=== PATIENT | male | born 1965 | race Caucasian/White ===

== ENCOUNTER 2019-08-05 11:30 | Outpatient (CLI) | payer OTHER, SELFPAY ==
[2019-08-12 15:48] LABS: Reference Lab Test Result Negative
== END 2019-08-05 11:31 | disposition home or self-care (01) ==
PROVIDERS: PCP Internal Medicine; Visit Provider Internal Medicine
DX: Z01.818 Encounter for other preprocedural examination (principal); Z11.59 Encounter for screening for other viral diseases
CPT/HCPCS: 36415; 86769

== ENCOUNTER 2019-08-06 00:28 | Outpatient (CLI) | payer OTHER, SELFPAY ==
[2019-08-06 19:45] LABS: SARS-CoV-2 RNA PCR Negative
== END 2019-08-06 00:29 | disposition home or self-care (01) ==
LOC: ANHCOVIDDT 00:28
PROVIDERS: PCP Internal Medicine; Visit Provider Internal Medicine Cardiovascular Disease
DX: Z01.818 Encounter for other preprocedural examination (principal); Z11.59 Encounter for screening for other viral diseases
CPT/HCPCS: 87635; C9803; U0003

== ENCOUNTER 2019-08-08 05:33 | Day surgery (SDC) | payer OTHER, SELFPAY ==
[2019-08-07 12:28] VITALS: BMI 42.4
[2019-08-08] VITALS (14 sets, daily range): BP systolic 131–182; BP diastolic 50–98; PULSE 56–73; RESP 14–23; TEMP 36.4–36.7; O2SAT 94–100
--- NOTE | 2019-08-08 08:57 | PM.IMHP ---
H&P: HPI History of Present Illness Chief complaint: Aortic Regurgitation Narrative: Sp Tapia is a 54 year old male with past history of hypertension and morbid obesity as well as untreated sleep apnea due to intolerance of CPAP mask. He was seen in the office for severe aortic regurgitation and he is here for transesophageal echocardiogram. Reports lately worsening shortness of breath on exertion but denies chest pain, lower limb edema, dizziness, syncope. Review of Systems Review of Systems: All systems reviewed & are unremarkable except as noted in HPI and below Constitutional: Constitutional: Denies chills, Denies fatigue, Denies fever(s), Denies headache(s) and Denies snoring Eyes: Eyes: Denies eye discharge and Denies loss of vision ENT: Denies dizziness, Denies headache(s), Denies nasal discharge and Denies sore throat Cardiovascular: Cardiovascular: Reports as per HPI, Denies chest pain, Denies syncope, Denies rapid heart rate, Denies leg edema, Reports dyspnea, Reports dyspnea on exertion, Denies orthopnea and Denies paroxysmal nocturnal dyspnea Respiratory: Respiratory: Denies chest congestion, Denies cough, Reports dyspnea, Reports dyspnea on exertion, Denies snoring and Denies wheezing Gastrointestinal: Gastrointestinal: Denies abdominal pain, Denies diarrhea, Denies nausea and Denies vomiting Genitourinary: Genitourinary: Denies hematuria, Denies dysuria, Denies flank pain and Denies urinary frequency Musculoskeletal: Musculoskeletal: Denies myalgias, Denies arthralgias and Denies joint swelling Neurologic: Denies Abnormal speech present, Denies dizziness, Denies syncope, Denies headache(s), Denies focal weakness and Denies loss of vision Psychiatric: Psychiatric: Denies anxiety and Denies depression Endocrine: Endocrine: Denies cold intolerance, Denies fatigue and Denies heat intolerance Hematologic/Lymphatic: Hematologic/Lymphatic: Denies easy bleeding and Denies easy bruising Allergic/Immunologic: Allergic/Immunologic: Denies urticaria and Denies wheezing PMFSH Past Medical History Medical History (Updated 08/08/19 @ 08:59 by Carlita Hollis MD) Hypertension Severe aortic regurgitation Severe aortic regurgitation Family History Family History Sibling Family history of malignant neoplasm of breast in first degree relative Father Hypertension Mother Hypertension Social History Social History Smoking status: Never smoker Tobacco type: e-cigarettes/vaping Second hand tobacco smoke exposure: No Alcohol intake: current Substance use type: does not use Living arrangements: alone Meds Home Medications and Allergies Home Medications Medication Instructions Recorded Confirmed Type apremilast 30 mg tablet 30 mg PO DAILY 02/21/19 08/07/19 History aspirin 81 mg tablet,delayed 81 mg PO DAILY 02/21/19 08/07/19 History release omeprazole magnesium 20 mg 20 mg PO DAILY 02/21/19 08/07/19 History tablet,delayed release valsartan 80 1 tablet PO DAILY #90 tablet 06/03/19 08/07/19 Rx mg-hydrochlorothiazide 12.5 mg tablet Allergies Allergy/AdvReac Type Severity Reaction Status Date / Time No Known Allergies Allergy Unknown Verified 08/07/19 12:27 Vital Signs Vital Signs - 24 hr 08/08/19 08:21 Temperature 36.7 C Pulse Rate 72 Respiratory Rate 23 H Blood Pressure 160/72 H Pulse Oximetry 100 Exam Const: General: cooperative, healthy appearing, comfortable, no acute distress and well developed Nutritional Appearance: well nourished Orientation/consciousness: patient oriented x3 HENMT: Head: normal to inspection, normocephalic and atraumatic Ears: hearing grossly normal bilaterally and external ears normal General nose exam: Normal external nose present and Normal nares present Face and sinus: normal facial exam and no erythema Mouth: Yes moist
--- NOTE | 2019-08-08 09:00 | WPDMODSED ---
Moderate Sedation Note-Pt Data Patient Data Allergies Allergy/AdvReac Type Severity Reaction Status Date / Time No Known Allergies Allergy Unknown Verified 08/07/19 12:27 Home Medications Medication Instructions Recorded Confirmed Type apremilast 30 mg tablet 30 mg PO DAILY 02/21/19 08/07/19 History aspirin 81 mg tablet,delayed 81 mg PO DAILY 02/21/19 08/07/19 History release omeprazole magnesium 20 mg 20 mg PO DAILY 02/21/19 08/07/19 History tablet,delayed release valsartan 80 1 tablet PO DAILY #90 tablet 06/03/19 08/07/19 Rx mg-hydrochlorothiazide 12.5 mg tablet Sedation/Anesthesia: No previous sedation/anesthesia problems (including family history). [facility] [place] Past Medical History Medical History (Updated 08/08/19 @ 08:59 by Carlita Hollis MD) Hypertension Severe aortic regurgitation Severe aortic regurgitation Family History Family History Sibling Family history of malignant neoplasm of breast in first degree relative Father Hypertension Mother Hypertension Social History Social History Smoking status: Never smoker Tobacco type: e-cigarettes/vaping Second hand tobacco smoke exposure: No Alcohol intake: current Substance use type: does not use Living arrangements: alone Mod Sed Physical Exam Physical Exam Pre Procedural Exam: Normal: Appearance, Eyes, Ears, Nose, Neck, Throat, Airway, Lungs, Heart Size, Heart Rate, Heart Rhythm, Neuro Exam, Abdomen, Liver, Kidneys, Spleen, Breasts, Genitalia, Extremities and Skin Hours since solid foods: 8 Hours since liquid intake: 8 Internal Medicine - PN: Obj Da Vital Signs Vital Signs: Vital Signs - 24 hr 08/08/19 08:21 Temperature 36.7 C Pulse Rate 72 Respiratory Rate 23 H Blood Pressure 160/72 H Pulse Oximetry 100 ASA Classification/Sedation ASA Classification/Sedation ASA Class: I Emergent: No Risks: Risks, benefits and alternatives explained and patient/family accepted plan for sedation. Patient re-evaluated immediately prior to sedation.
--- NOTE | 2019-08-08 09:36 | P.PCNTEE_ITS ---
ADE TransEsophageal Echocardiogram Date of procedure: 08/08/19 Procedure Type: Date of service: 08/08/2019 Procedures done: 1-transesophageal echocardiogram using 2D imaging, color Doppler, pulse wave Doppler. 2-moderate sedation that started at 9:07 a.m. and ended at 9:33 a.m. with a tota l duration 26 minutes using 6 mg of Versed and 150 mcg of fentanyl. The registered nurse was Maricruz Medrano. Diagnosis: Severe aortic regurgitation Indications: Severe aortic regurgitation Image Quality: Excellent Findings: Left ventricular: Normal size and systolic function with estimated ejection fraction 55%. Right ventricle: Normal size and systolic function. Left atrium: Normal size. Right atrium: Normal size. Interatrial septum: No evidence for shunt by bubble study and by color Doppler. Left atrial appendage: No evidence for clots. Mitral valve: Normal structure and function. Mild mitral regurgitation. No evidence for stenosis. Aortic valve: Trileaflet aortic valve. Moderately sclerotic. Severe aortic valve regurgitation. No stenosis. -tricuspid valve: Normal structure and function without stenosis or regurgitation. -pulmonic valve: Normal structure and function without stenosis or regurgitation. -pericardium: No pericardial effusion. -ascending aorta: Seems to be generous measures about 3.9 cm. -descending aorta. Normal caliber. Mild atheroma. -pleural: No evidence for pleural effusion. Conclusions: Severe aortic valve regurgitation. Mild mitral valve regurgitation. Ascending aorta mildly dilated.
--- NOTE | 2019-08-08 11:57 | SUR.PHASEII ---
1145 Pt d/c instructions reviewed with patient, questions answered. Copy of ADE CD made and given to Maria A MONTEMAYOR. IV d/c'd, cath intact, pressure applied. Pt transported via WC to main entrance where his father drove him home in private vehicle.
== END 2019-08-08 11:50 | disposition home or self-care (01) ==
PROVIDERS: PCP Internal Medicine; Visit Provider Internal Medicine Cardiovascular Disease
PROC: (CPT 93312; principal; 2019-08-08 08:30)
DX: I35.1 Nonrheumatic aortic (valve) insufficiency (principal); I10 Essential (primary) hypertension; G47.33 Obstructive sleep apnea (adult) (pediatric); E78.49 Other hyperlipidemia; E66.01 Morbid (severe) obesity due to excess calories; Z68.41 Body mass index [BMI] 40.0-44.9, adult; F17.290 Nicotine dependence, other tobacco product, uncomplicated; Z79.82 Long term (current) use of aspirin
CPT/HCPCS: 93312; 93320; 93325; J2250; J3010; J7040

== ENCOUNTER 2019-09-03 00:28 | Outpatient (CLI) | payer OTHER, SELFPAY ==
[2019-09-03 17:56] LABS: SARS-CoV-2 RNA PCR Negative
== END 2019-09-03 00:29 | disposition home or self-care (01) ==
LOC: ANHCOVIDDT 00:29
PROVIDERS: PCP Internal Medicine; Visit Provider Internal Medicine Cardiovascular Disease
DX: Z01.818 Encounter for other preprocedural examination (principal); Z11.59 Encounter for screening for other viral diseases
CPT/HCPCS: 87635; C9803; U0003

== ENCOUNTER 2019-09-05 05:37 | Day surgery (SDC) | payer OTHER, SELFPAY ==
[2019-09-04 16:05] VITALS: BMI 43.4
[2019-09-05] VITALS (8 sets, daily range): BP systolic 133–159; BP diastolic 61–75; PULSE 48–68; RESP 10–20; TEMP 36.3; O2SAT 94–99
[2019-09-05 07:53] LABS: Basophils Absolute Auto 0.1 K/mm3 (0.0-0.1); Basophils Percent Auto 0.8 % (0.2-1.2); Eosinophils Absolute Auto 0.4 K/mm3 (0-0.3); Eosinophils Percent Auto 5.8 % (0-4.4); Hematocrit 33.7 % (42.0-52.0); Hemoglobin 10.9 g/dL (14.0-18.0); Immature Granulocyte Absolute 0.02 K/mm3 (0.00-0.031); Immature Granulocyte Percent A 0.3 % (0-0.5); Lymphocytes Absolute Auto 2.17 K/mm3 (0.9-3.2); Lymphocytes Percent Auto 34.7 % (18.3-44.2); Mean Corpuscular HGB Conc 32.3 g/dl (32-36); Mean Corpuscular Hemoglobin 27.1 pg (26-34); Mean Corpuscular Volume 83.8 fl (80-100); Mean Platelet Volume 10.8 fl (7.4-10.4); Monocytes Absolute Auto 0.7 K/mm3 (0.1-0.6); Monocytes Percent Auto 11.4 % (2.6-8.5); Neutrophils Absolute Auto 2.9 K/mm3 (1.3-6.7); Platelet Count Result 218 k/mm3 (150-375); Red Blood Count 4.02 M/mm3 (4.6-6.20); Red Cell Distribution Width 14.5 % (11.5-14.5); White Blood Count 6.3 K/mm3 (4.5-10.0)
[2019-09-05 08:02] LABS: Prothrombin Time 12.8 Seconds (11.1-14.7)
[2019-09-05 08:05] LABS: Anion Gap 10.9 mmol/L (7-16); Blood Urea Nitrogen 13 mg/dL (9-20); Calcium 8.5 mg/dL (8.4-10.2); Carbon Dioxide 23 mmol/L (22-30); Chloride 108 mmol/L (98-107); Estimated CRCL calculation 136 ml/min; Estimated Glomerular Filt Rate > 60; Glucose 108 mg/dL (75-110); Potassium 3.9 mmol/L (3.4-5.0); Sodium 138 mmol/L (137-145)
--- NOTE | 2019-09-05 08:39 | WPDMODSED ---
Moderate Sedation Note-Pt Data Patient Data Allergies Allergy/AdvReac Type Severity Reaction Status Date / Time No Known Allergies Allergy Unknown Verified 08/07/19 12:27 Home Medications Medication Instructions Recorded Confirmed Type apremilast 30 mg tablet 30 mg PO DAILY 02/21/19 09/05/19 History aspirin 81 mg tablet,delayed 81 mg PO DAILY 02/21/19 09/05/19 History release omeprazole magnesium 20 mg 20 mg PO DAILY 02/21/19 09/05/19 History tablet,delayed release valsartan 80 1 tablet PO DAILY #90 tablet 06/03/19 09/05/19 Rx mg-hydrochlorothiazide 12.5 mg tablet Current Medications: Active Medications Sodium Chloride (Normal Saline Iv) 500 mls @ 100 mls/hr IV CONT .Q5H [facility] Sedation/Anesthesia: No previous sedation/anesthesia problems (including family history). [facility] Past Medical History Medical History Hypertension Severe aortic regurgitation Severe aortic regurgitation Social History Social History Smoking status: Never smoker Tobacco type: e-cigarettes/vaping Second hand tobacco smoke exposure: No Alcohol intake: current Alcohol use details: social drinking Substance use type: does not use Gender identity (if verbalized by the patient): Male Sexual Orientation (if Verbalized by the Patient): Straight or Heterosexual Mod Sed Physical Exam Physical Exam Pre Procedural Exam: Normal: Appearance, Eyes, Ears, Nose, Neck, Throat, Airway, Lungs, Heart Size, Heart Rate, Heart Rhythm, Neuro Exam, Abdomen, Liver, Kidneys, Spleen, Breasts, Genitalia, Extremities and Skin Hours since solid foods: 8 Hours since liquid intake: 8 Internal Medicine - PN: Obj Da Vital Signs Vital Signs: Vital Signs - 24 hr 09/05/19 07:52 Temperature 36.3 C L Pulse Rate 68 Respiratory Rate 18 Blood Pressure 155/75 H Pulse Oximetry 98 Meds/Results Medications: Active Medications Generic Name Dose Route Start Last Admin Trade Name Freq PRN Reason Stop Dose Admin Sodium Chloride 500 mls @ 100 mls/hr 09/05/19 06:15 Normal Saline Iv IV CONT .Q5H [facility] Labs CBC & Chem 7: 09/05/19 07:45 09/05/19 07:45 Labs: Laboratory Results - last 24 hr 09/05/19 09/05/19 09/05/19 07:45 07:45 07:45 WBC 6.3 RBC 4.02 L Hgb 10.9 L Hct 33.7 L MCV 83.8 MCH 27.1 MCHC 32.3 RDW 14.5 Plt Count 218 MPV 10.8 H Immature Gran % (Auto) 0.3 Neut % (Auto) 47.0 Lymph % (Auto) 34.7 [place] % (Auto) 11.4 H Eos % (Auto) 5.8 H Baso % (Auto) 0.8 Lymph # (Auto) 2.17 [place] # (Auto) 0.7 H Eos # (Auto) 0.4 H Baso # (Auto) 0.1 Abs Immat Gran (auto) 0.02 Absolute Neuts (auto) 2.9 Absolute Nucleated RBC 0.0 Nucleated RBC % 0.0 PT 12.8 INR 1.0 Sodium 138 Potassium 3.9 Chloride 108 H Carbon Dioxide 23 Anion Gap 10.9 BUN 13 Creatinine 0.80 Estim Creat Clear Calc 136 Estimated GFR > 60 Glucose 108 Calcium 8.5 ASA Classification/Sedation ASA Classification/Sedation ASA Class: I Emergent: No Risks: Risks, benefits and alternatives explained and patient/family accepted plan for sedation. Patient re-evaluated immediately prior to sedation.
--- NOTE | 2019-09-05 08:39 | PM.IMHP ---
H&P: HPI History of Present Illness Chief complaint: AI Narrative: Sp Tapia is a 54 year old male Past medical history severe regurgitation, morbid obesity comes here for cardiac catheterization prior to anticipated aortic valve replacement. Complains of generalized fatigability, some dyspnea on exertion but denies chest pain, lower limb edema, dizziness, syncope. Review of Systems Review of Systems: All systems reviewed & are unremarkable except as noted in HPI and below Constitutional: Constitutional: Denies chills, Reports fatigue, Denies fever(s), Denies headache(s) and Denies snoring Eyes: Eyes: Denies eye discharge and Denies loss of vision ENT: Denies dizziness, Denies headache(s), Denies nasal discharge and Denies sore throat Cardiovascular: Cardiovascular: Reports as per HPI, Denies chest pain, Denies syncope, Denies rapid heart rate, Denies leg edema, Denies dyspnea, Denies dyspnea on exertion, Denies orthopnea and Denies paroxysmal nocturnal dyspnea Respiratory: Respiratory: Denies chest congestion, Denies cough, Denies dyspnea, Denies dyspnea on exertion, Denies snoring and Denies wheezing Gastrointestinal: Gastrointestinal: Denies abdominal pain, Denies diarrhea, Denies nausea and Denies vomiting Genitourinary: Genitourinary: Denies hematuria, Denies dysuria, Denies flank pain and Denies urinary frequency Musculoskeletal: Musculoskeletal: Denies myalgias, Denies arthralgias and Denies joint swelling Neurologic: Denies Abnormal speech present, Denies dizziness, Denies syncope, Denies headache(s), Denies focal weakness and Denies loss of vision Psychiatric: Psychiatric: Denies anxiety and Denies depression Endocrine: Endocrine: Denies cold intolerance, Denies fatigue and Denies heat intolerance Hematologic/Lymphatic: Hematologic/Lymphatic: Denies easy bleeding and Denies easy bruising Allergic/Immunologic: Allergic/Immunologic: Denies urticaria and Denies wheezing PMFSH Past Medical History Medical History Hypertension Severe aortic regurgitation Severe aortic regurgitation Social History Social History Smoking status: Never smoker Tobacco type: e-cigarettes/vaping Second hand tobacco smoke exposure: No Alcohol intake: current Alcohol use details: social drinking Substance use type: does not use Gender identity (if verbalized by the patient): Male Sexual Orientation (if Verbalized by the Patient): Straight or Heterosexual Meds Home Medications and Allergies Home Medications Medication Instructions Recorded Confirmed Type apremilast 30 mg tablet 30 mg PO DAILY 02/21/19 09/05/19 History aspirin 81 mg tablet,delayed 81 mg PO DAILY 02/21/19 09/05/19 History release omeprazole magnesium 20 mg 20 mg PO DAILY 02/21/19 09/05/19 History tablet,delayed release valsartan 80 1 tablet PO DAILY #90 tablet 06/03/19 09/05/19 Rx mg-hydrochlorothiazide 12.5 mg tablet Allergies Allergy/AdvReac Type Severity Reaction Status Date / Time No Known Allergies Allergy Unknown Verified 08/07/19 12:27 Vital Signs Vital Signs - 24 hr 09/05/19 07:52 Temperature 36.3 C L Pulse Rate 68 Respiratory Rate 18 Blood Pressure 155/75 H Pulse Oximetry 98 Exam Const: General: cooperative, healthy appearing, comfortable, no acute distress and well developed Nutritional Appearance: well nourished Orientation/consciousness: patient oriented x3 HENMT: Head: normal to inspection, normocephalic and atraumatic Ears: hearing grossly normal bilaterally and external ears normal General nose exam: Normal external nose present and Normal nares present Face and sinus: normal facial exam and no erythema Mouth: Yes moist mucous membranes and No lip abnormal Throat: uvula midline Eyes: General: appearance normal, both eyes and all related structures Eyelids: eyelids normal Scler
--- NOTE | 2019-09-05 08:42 | P.PCNCC_ITS ---
Cardiac Cath Procedure Note Date of procedure:: 09/05/19 Performing physician:: Carlita Hollis MD date of service September 05, 2019 Procedure Procedure performed:: 1-Moderate sedation that started at 8:52 a.m.and ended at 9:27 a.m. with total duration 34 minutesusing mg of Versed and mg fentanyl. The registered nurse was damaso calabrese 2-Selective left and right coronary angiogram. 3-Left heart catheterization with measurement of LVEDP and measurement of gradient across aortic valve. 3- LV angiogram. 4-Right common femoral arterial angiogram. 5-Deployment of 6 [place] Angio-Seal. Sedation/Medication given:: Moderate sedation. Access site:: Right common femoral artery. Estimated blood loss:: 10cc Procedure note:: After informed consent patient was brought in to mini lab operator with the was draped and prepped in usual manner. Moderate sedation was given and the right groin was infiltrated using 1% lidocaine. Five [place] sheath was obtained using micropuncture needle and the modified Seldinger technique. Selective left coronary angiogram was done using JL5 catheter with the tip of the catheter placed in the left main coronary artery. Selective right coronary angiogram was done using JR4 catheter with the tip of the catheter placed to the right coronary artery. After that 5 [place] pigtail catheter was advanced across the aortic valve into the left ventricle with measurement of LVEDP and measurement of gradient across aortic valve. LV angiogram was done.Right common femoral arterial angiogram was done. Findings:: 1- left coronary artery is a large artery that divides into large LAD , large circumflex artery. Left main is short and without significant disease. 2- left anterior descending artery is a large artery that runs and wraps around the apex. has minimal irregularities 3- leftcircumflex artery is a large artery and codominant with minimal irregularities. Large OM1 branch with minimal irregularities and medium size the PDA. 4- right coronary artery is Large artery, tortuous with minimal irregularities. 5- LVEDP was 15 and no gradient across aortic valve. 6- opening arterial pressure was 180/90and closing pressure was 170/90 6- LV angiogram shows normal LV systolic function. Both the ascending and the descending aorta seems to be generous and dilated. 7- right femoral artery angiogram shows no significant disease in the right common femoral artery. Conclusion:: 1- Minimal coronary irregularities. 2- Cannot rule out aortic aneurysm both in the ascending and the descending. Assessment and Plan Additional Plan 1- Patient will need CTA of thoracic aorta. 2- refer to surgery for consideration for aortic valve replacement.
--- NOTE | 2019-09-05 12:57 | SUR.PHASEII ---
Pt. given discharge education on follow-up care, site care, and reportable signs/symptoms. Pt. verbalizes understanding.
== END 2019-09-05 13:12 | disposition home or self-care (01) ==
LOC: ANHCATHLAB 05:37 → ANHCARD 09:31 → ANHCATHLAB 09-25 12:23
PROVIDERS: PCP Internal Medicine; Visit Provider Internal Medicine Cardiovascular Disease
PROC: 4A023N7 Measurement of Cardiac Sampling and Pressure, Left Heart, Percutaneous Approach (ICD-10-PCS; CPT 93452; principal; 2019-09-05 08:30)
DX: Z01.810 Encounter for preprocedural cardiovascular examination (principal); I35.1 Nonrheumatic aortic (valve) insufficiency; R06.09 Other forms of dyspnea; R93.1 Abnormal findings on diagnostic imaging of heart and coronary circulation; I10 Essential (primary) hypertension; Z79.82 Long term (current) use of aspirin; F17.290 Nicotine dependence, other tobacco product, uncomplicated; G47.33 Obstructive sleep apnea (adult) (pediatric); E66.01 Morbid (severe) obesity due to excess calories; Z68.41 Body mass index [BMI] 40.0-44.9, adult
CPT/HCPCS: 36415; 80048; 85025; 85610; 87635; 93458; C1760; C1887; C1894; G0269; J1644; J2250; J3010; J7030; U0003

== ENCOUNTER → 2019-09-19 10:18 | Outpatient (CLI) | payer OTHER, SELFPAY ==
--- NOTE | ~2019-09-19 | CT_ITS ---
EXAMINATION: CTA chest DATE: 09/19/2019 11:01 INDICATION: Thoracic aortic aneurysm TECHNIQUE: Computed tomographic angiography (CTA) of the chest was performed without and with 100 mL Omnipaque-350 intravenous contrast. Volume-rendered 3D-reconstructions of the aorta and large arterie s were constructed by the technologist on a separate workstation. The dose-length product was 1858 mG y-cm. COMPARISON: None. FINDINGS: Lungs are clear with no pneumonia, pulmonary edema or pleural effusion. 4 mm right middle lobe nodule . Cardiomegaly. No pericardial effusion. Fusiform ascending thoracic aorta which measures up to 4.8 c m in maximal diameter tapering to 3.9 cm at the level of the takeoff of the innominate artery and 3.1 cm at the distal side of the takeoff of the left subclavian artery. Descending thoracic aorta is nor mal in caliber. No dissection. No pathologically enlarged thoracic lymphadenopathy. 11.3 cm and 5.1 c m left renal cyst. 2.2 cm low-attenuation right adrenal adenoma. Liver, gallbladder, spleen, pancreas and left adrenal gland are normal. Small sliding-type hiatal hernia. Mild thoracic kyphosis with mil d anterior wedging of a few mid to lower thoracic vertebral bodies. There are bridging osteophytes at multiple levels in the spine, consistent with diffuse idiopathic skeletal hyperostosis (DISH). IMPRESSION: 1. Fusiform ascending thoracic aortic aneurysm measuring up to 4.8 cm in maximal diameter. 2. Small sliding-type hiatal hernia. Reviewed, dictated and finalized at location A. IMPRESSION: 1. Fusiform ascending thoracic aortic aneurysm measuring up to 4.8 cm in ward l diameter. 2. Small sliding-type hiatal hernia.
[2019-09-19 10:37] LABS: Estimated Glomerular Filt Rate > 60
== END ==
PROVIDERS: Visit Provider Internal Medicine Cardiovascular Disease
DX: I71.2 Thoracic aortic aneurysm, without rupture (principal); K44.9 Diaphragmatic hernia without obstruction or gangrene
CPT/HCPCS: 36415; 71275; Q9967

== ENCOUNTER 2020-08-27 01:52 | Day surgery (SDC) | payer OTHER, SELFPAY ==
[2020-08-27] VITALS (9 sets, daily range): BP systolic 136–164; BP diastolic 57–96; PULSE 66–79; RESP 15–24; TEMP 35.7; O2SAT 92–99; BMI 44.4
--- NOTE | 2020-08-27 10:56 | PM.IMHP ---
H&P: HPI History of Present Illness Date/Time: dos: 08/27/20 10:56 Chief Complaint: I am here for transesophageal echo Narrative: this is 55-year-old patient who history of sleep apnea morbid obesity who had aortic valve repair last year however repeat imaging shows moderate to severe aortic valve regurgitation. He complains of dyspnea on exertion and feeling fatigability. He is here for repeat echo transesophageal echocardiogram to further assess. Denies chest pains, dizziness or syncope. Review of Systems Review of Systems: All systems reviewed & are unremarkable except as noted in HPI and below Constitutional: Constitutional: Denies chills, Reports fatigue, Denies fever(s), Denies headache(s) and Denies snoring Eyes: Eyes: Denies eye discharge and Denies loss of vision ENT: Denies dizziness, Denies headache(s), Denies nasal discharge and Denies sore throat Cardiovascular: Cardiovascular: Reports as per HPI, Denies chest pain, Denies syncope, Denies rapid heart rate, Denies leg edema, Reports dyspnea, Reports dyspnea on exertion, Denies orthopnea and Denies paroxysmal nocturnal dyspnea Respiratory: Respiratory: Denies chest congestion, Denies cough, Reports dyspnea, Reports dyspnea on exertion, Denies snoring and Denies wheezing Gastrointestinal: Gastrointestinal: Denies abdominal pain, Denies diarrhea, Denies nausea and Denies vomiting Genitourinary: Genitourinary: Denies hematuria, Denies dysuria, Denies flank pain and Denies urinary frequency Musculoskeletal: Musculoskeletal: Denies myalgias, Denies arthralgias and Denies joint swelling Neurologic: Denies Abnormal speech present, Denies dizziness, Denies syncope, Denies headache(s), Denies focal weakness and Denies loss of vision Psychiatric: Psychiatric: Denies anxiety and Denies depression Endocrine: Endocrine: Denies cold intolerance, Denies fatigue and Denies heat intolerance Hematologic/Lymphatic: Hematologic/Lymphatic: Denies easy bleeding and Denies easy bruising Allergic/Immunologic: Allergic/Immunologic: Denies urticaria and Denies wheezing PMF Past Medical History Medical History Hypertension Severe aortic regurgitation Severe aortic regurgitation Family History Family History Sibling Family history of malignant neoplasm of breast in first degree relative Father Hypertension Mother Hypertension Social History Social History Smoking status: Never smoker Tobacco type: e-cigarettes/vaping Second hand tobacco smoke exposure: No Alcohol intake: current Alcohol use details: social drinking Substance use type: does not use Gender identity (if verbalized by the patient): Male Meds Home Medications and Allergies Home Medications Medication Instructions Recorded Confirmed Type apremilast 30 mg tablet 30 mg PO DAILY 02/21/19 08/26/20 History omeprazole magnesium 20 mg 20 mg PO DAILY 02/21/19 08/26/20 History tablet,delayed release aspirin 81 mg tablet,delayed 325 mg PO DAILY tablet 11/06/19 08/26/20 History release valsartan 80 1 tablet PO DAILY #90 tablet 07/23/20 08/26/20 Rx mg-hydrochlorothiazide 12.5 mg tablet Allergies Allergy/AdvReac Type Severity Reaction Status Date / Time No Known Allergies Allergy Unknown Verified 08/26/20 16:43 Vital Signs Vital Signs - 24 hr 08/27/20 09:42 Temperature 35.7 C L Pulse Rate 79 Respiratory Rate 20 Blood Pressure 156/84 H Pulse Oximetry 94 Exam Const: General: cooperative, healthy appearing, comfortable, no acute distress and well developed Nutritional Appearance: well nourished Orientation/consciousness: patient oriented x3 HENMT: Head: normal to inspection, normocephalic and atraumatic Ears: hearing grossly normal bilaterally and external ears normal General nose exam: N
--- NOTE | 2020-08-27 11:23 | P.SEDATION_ITS ---
Moderate Sedation Note-Pt Data Patient Data Allergies Allergy/AdvReac Type Severity Reaction Status Date / Time No Known Allergies Allergy Unknown Verified 08/26/20 16:43 Home Medications Medication Instructions Recorded Confirmed Type apremilast 30 mg tablet 30 mg PO DAILY 02/21/19 08/26/20 History omeprazole magnesium 20 mg 20 mg PO DAILY 02/21/19 08/26/20 History tablet,delayed release aspirin 81 mg tablet,delayed 325 mg PO DAILY tablet 11/06/19 08/26/20 History release valsartan 80 1 tablet PO DAILY #90 tablet 07/23/20 08/26/20 Rx mg-hydrochlorothiazide 12.5 mg tablet Sedation/Anesthesia: No previous sedation/anesthesia problems (including family history). [facility] Past Medical History Medical History Hypertension Severe aortic regurgitation Severe aortic regurgitation Family History Family History Sibling Family history of malignant neoplasm of breast in first degree relative Father Hypertension Mother Hypertension Social History Social History Smoking status: Never smoker Tobacco type: e-cigarettes/vaping Second hand tobacco smoke exposure: No Alcohol intake: current Alcohol use details: social drinking Substance use type: does not use Gender identity (if verbalized by the patient): Male Mod Sed Physical Exam Physical Exam Pre Procedural Exam: Normal: Appearance, Eyes, Ears, Nose, Neck, Throat, Airway, Lungs, Heart Size, Heart Rate, Heart Rhythm, Neuro Exam, Abdomen, Liver, Kidneys, Spleen, Breasts, Genitalia, Extremities and Skin Hours since solid foods: 8 Hours since liquid intake: 8 Mallampati Classification: class II Internal Medicine - PN: Obj Da Vital Signs Vital Signs: Vital Signs - 24 hr 08/27/20 09:42 08/27/20 10:56 08/27/20 11:00 Temperature 35.7 C L Pulse Rate 79 69 67 Respiratory Rate 20 20 24 H Blood Pressure 156/84 H 155/74 H 136/57 L Pulse Oximetry 94 99 98 08/27/20 11:10 08/27/20 11:20 Temperature Pulse Rate 78 76 Respiratory Rate 17 19 Blood Pressure 142/96 H 147/78 H Pulse Oximetry 96 99 ASA Classification/Sedation ASA Classification/Sedation ASA Class: I Emergent: No Risks: Risks, benefits and alternatives explained and patient/family accepted plan for sedation. Patient re-evaluated immediately prior to sedation.
--- NOTE | 2020-08-27 11:24 | WPDTEECHO ---
ADE TransEsophageal Echocardiogram Date of procedure: 08/27/20 Procedure Type: 1- moderate sedation that started at 11:01 a.m. and ended at 11:23 a.m. using 125 mcg of fentanyl and 5 mg of Versed. There just tenderness was Juan barbabigail. 2- transesophageal echocardiogram using 2D, color Doppler multiplanar view. Diagnosis: assess aortic valve severity Indications: assess aortic valve severity Image Quality: fair. Findings: 1- left ventricle is normal in size and systolic function. Estimated ejection fraction 70%.. 2- Normal right ventricle size and systolic function. 3. Left atrium normal in size. 4. Right atriuim. Normal in size 5- appendage: clots. 6- aortic valve appears to have moderate regurgitation. No stenosis. 7- mitral valve normal structure and function without stenosis. Mild mitral regurgitation. 8- tricuspid valve normal structure and function without regurgitation or stenosis. 9- pulmonic valve normal structure and function point. 10- descending aorta looks normal Conclusions: moderate regurgitation with preserved LV systolic function and dimension
== END 2020-08-27 13:05 | disposition home or self-care (01) ==
PROVIDERS: PCP Internal Medicine; Visit Provider Internal Medicine Cardiovascular Disease
PROC: (CPT 93312; principal; 2020-08-27 10:30)
DX: I35.1 Nonrheumatic aortic (valve) insufficiency (principal); I34.0 Nonrheumatic mitral (valve) insufficiency; G47.30 Sleep apnea, unspecified; I10 Essential (primary) hypertension; E66.01 Morbid (severe) obesity due to excess calories; Z68.41 Body mass index [BMI] 40.0-44.9, adult; F17.290 Nicotine dependence, other tobacco product, uncomplicated; Z79.82 Long term (current) use of aspirin
CPT/HCPCS: 93312; 93320; 93325; J2250; J3010; J7040

== ENCOUNTER 2021-07-01 08:03 | Outpatient (CLI) | payer OTHER, SELFPAY ==
--- NOTE | 2021-07-14 12:21 | WPDSLEEPSTUD ---
Sleep Study Date of Study: 07/01/21 Ordering Provider: Lual Vance MD Interpreting Physician: Lula Vance MD Sleep Study Type: Split Polysomnogram Height: 1.83 m Weight: 130.181 kg Body Mass Index: 38.9 Neck Circumference (inches): 16.5 Wallace: 14 Reason for Sleep Study history of ISELA diagnosed in 2012, * 08/22/2012 AHI 56.1 mainly central apneas; during titration a final pressure of 18/13 was used. The patient had 64.7 limb movements per hour. Sleep History Sp Tapia is a 56 year old man with obstructive sleep apnea diagnosed in 2012, pressure was BiPAP 18/13 which was poorly tolerated. He had problems with mask leak, chin strap was no help. He only used PAP for a few months and had difficulty tolerating it. He is still snoring and feels tired in the day. There is a family history of sleep apnea in his paternal uncles. He wakes up during the night, he is always tired and he has loud snoring. He does not awaken from sleep feeling short of breath. He does not awaken at night with heartburn, belching or coughing. He frequently snores and frequently this is loud enough that others complain about it. He does not have trouble sleeping with a cold. Does not wake up gasping for breath at night or have breathing problems at night reported to him by others. He occasionally notices his heart pounding or beating irregularly at night. He frequently falls asleep during the day. He occasionally falls asleep while driving. He does not have loss of muscle tone with strong emotion. He occasionally has daytime difficulties due to excessive sleepiness. He does not feel paralyzed on waking or falling asleep. He does not have vivid dreamlike scenes upon awakening or falling asleep. He does not feel afraid to go to sleep. He rarely has nightmares. He occasionally remembers his dreams. He occasionally has racing thoughts. He does not feel sad depressed or anxious. He does not have muscular tension or notices parts of his body jerking. He rarely kicks at night. He does not have crawling aching feelings in his legs. He frequently has cramping in his legs at night. He does not have morning jaw pain. He does not grind his teeth during sleep. He is not bothered by pain during the day or awakened by pain at night. He does not wake up feeling stiff in the morning with sore achy muscles are pain in the neck and spine. He has concentration difficulties, erectile dysfunction, fatigue and he takes antacids regularly. 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 He may go to bed very late between 1:30 a.m. and 2:00 a.m. and wake between 9:00 a.m. and 10:00 a.m. not feeling refreshed. He occasionally has dreams, has nocturia every couple of hours at night, 2-3 episodes nocturia. Uses an alarm to wake in the morning. He does not take naps in generally does not feel refreshed after taking a nap. He is drowsy for 3 hours or longer after waking. Feels better in the afternoon compared to other times of day. Habits: He smokes daily. He has a couple of servings of caffeine a day. No alcohol or recreational drugs. [facility] Past Medical History Medical History Hypertension Obstructive sleep apnea (adult) (pediatric) Severe aortic regurgitation Surgical History Surgical History S/P aortic valve repair Family History Family History Sibling Family history of malignant neoplasm of breast in first degree relative Father Hypertension Mother Hypertension Social History Social History Smoking status: Current every day smoker Tobacco type: e-cigarettes/vaping Second hand tobacco smoke exposure: No Alcohol intake: current Drinks per week
[2021-07-14 14:20] VITALS: BMI 38.9
== END 2021-07-02 07:48 | disposition home or self-care (01) ==
PROVIDERS: PCP Internal Medicine; Visit Provider Internal Medicine Critical Care Medicine
DX: G47.33 Obstructive sleep apnea (adult) (pediatric) (principal)
CPT/HCPCS: 95811